=== PATIENT | male | born 1960 | race Caucasian/White ===

== ENCOUNTER 2019-07-07 17:39 | Observation (INO) | payer BC ==
[~2019-07-07] VITALS: Ht 182.9 cm; Wt 79.5 kg
--- NOTE | ~2019-07-07 | EC ---
PATIENT:GUILLE KARIMI DATE OF SERVICE: 07/07/19 SEX: M MEDICAL RECORD: [id number] DATE OF : 62 LOCATION:D.M2 D.212 AGE OF PATIENT: 58 ADMISSION DATE: 07/07/19 REFERRING PHYSICIAN: INTERPRETING PHYSICIAN: SANIA GUERRERO MD ECHOCARDIOGRAM REPORT ECHO CHARGES 4 ECHO COMPLETE Date: 07/08/19 CLINICAL DIAGNOSIS: MITRAL REGURG ECHOCARDIOGRAPHIC MEASUREMENTS (adult normal given) AC root (d.<3.7cm) 3.2 cm LV Septum d (<1.2 cm> 1.4 cm Valve Excursion 1.6 cm LV Septum (systole) 1.5 cm Left Atria (s.<4.0cm> 3.3 cm LVPW d(<1.2cm) 1.5 cm RV (d.<2.3cm) 4.8 cm LVPW (sytole) 1.5 cm LV diastole(<5.6CM) 6.0 cm MV E-F(>70mm/sec) cm LV systole 4.7 cm LVOT Diameter 1.9 cm MV exc.(>10mm) 1.8 cm Est.ejection fraction (50-75%) % DOPPLER: LVIT cm/sec A 84.0 cm/sec E 69.0 cm/sec LA cm/sec RVSP 26 mmHg LVOT 140 cm/sec AOP1/2T m/s Asc. Ao 160 cm/sec RVOT 104 cm/sec RA cm/sec PA 124 cm/sec AV Gradient Peak 10.28mmHg AV Mean 5.54 mmHg AV Area 2.4 cm MV Gradient Peak 3.17 mmHg MV Mean 1.47 mmHg MV Area cm COMMENTS: Manager Park: 2 MARS [place]ERO Business Education Professor: 4 Dr. Guerrero TAPE# PACS Pericardial Effusion N DATE OF SERVICE: FINDINGS: Left ventricle: The left ventricle has mild concentric left ventricular hypertrophy, normal size, normal function, ejection fraction 55%. There is no evidence of regional wall motion abnormalities. Left atrium is normal size; shape, structure, and function. The aortic valve is normal size, shape, structure, and function. ECHOCARDIOGRAM REPORT [id number] GUILLE KARIMI The mitral valve is normal. The tricuspid valve is normal. Pericardium has no effusion. The right ventricle is mildly dilated. The right atrium is mildly dilated. IMPRESSION: The patient has normal LV systolic function. Mildly dilated right ventricle and right ventricular structures with normal right-sided pressures. The patient does have calcification on the anterior mitral valve leaflet, it is echo dense, in the proper situation it could be considered a vegetation. There is no associated mitral regurgitation. However, clinical followup was suggested. TRANSINT:[id number] Voice Confirmation ID: [id number] DOCUMENT ID: [id number] SANIA GUERRERO MD CC: [id number] DICTATION DATE: 07/09/19 1147 OFFICE COMMUNICATION PROFESSOR: 07/09/19 1312 DIS IN 07/08/19 [facility] [address] [place] [address]
--- NOTE | ~2019-07-07 | HEMODYNAMI ---
PATIENT:GUILLE KARIMI MEDICAL RECORD: [id number] : 62 [id number] ADMISSION DATE: 07/07/19 Generatedon:07/08/201912:01 Patient name: GUILLE KARIMI Patient #: [id number] SSN: [id number] : 1960 Date of study: 07/08/2019 Page: Of Hemodynamic Procedure Report Patient Data Patient Demographics Procedure consent was obtained First Name: GUILLE Gender: Male Last Name: TREV : 1960 Patient #: [id number] Age: 58 year(s) Race: SSN: [id number] Additional ID: [id number] Contact details Address: [address] [address] State: [place] City: [place] Zip code: [address] Past Medical History Allergies: No known allergies Admission Admission Data Admission Date: 07/07/2019 Admission Time: 19:37 Arrival Date: 07/08/2019 Arrival Time: 0:00 Admit Source: Other Insurance Payor: Private Room #: D.2121 health insurance [facility] #: [id number] Height (in.): 72 BSA: 2.01 (m2) Height (cm.): 182.88 BMI: 23.78 (kg/m2) Weight (lbs.): 175.36 Weight (kg.): 79.54 Lab Results Lab Result Date: 07/08/2019 Lab Result Time: 0:00 Biochemistry Name Units Result Min Max BUN mg/dl 14 --(--*-)-- 7 18 CK-MB ng/ml 0.7 --(*---)-- 0 3.6 Creatinine mg/dl 0.8 --(-*--)-- 0.6 1.3 eGFR ml/min 90 --(*---)-- 90 120 NONAFRICAN Troponin l ng/ml 0.017 --(-*--)-- 0 0.06 CBC Name Units Result Min Max Hematocrit % 46.4 --(-*--)-- 42 54 Hemoglobin g/dl 14.8 --(-*--)-- 13.5 17.5 Procedure Procedure Types Cath Procedure Diagnostic Procedure [facility] w/Coronaries Procedure Description Procedure Date Procedure Date: 07/08/2019 Procedure Start Time: 11:50 Procedure End Time: 12:00 Procedure Staff Name Function Marie Lyn MD Performing Physician Emma Cartwright RN Nurse Dina Perales RT Monitor Gary Barnes RT Scrub Procedure Data Cath Procedure Fluoroscopy Diagnostic fluoroscopy Total fluoroscopy Time: 2.4 time: 2.4 min min Diagnostic fluoroscopy Total fluoroscopy dose: 238 dose: 238 mGy mGy Contrast Material Contrast Material Type Amount (ml) Isovue 370 30 Entry Location Entry Primary Successful Side Size Upsize Upsize Entry Closure Mcgowan ccessful Closure Location (Fr) 1 (Fr) 2 (Fr) Remarks Device Remarks Radial Right 6 Fr Mechanical artery Short Compression Estimated blood loss: 5 ml Diagnostic catheters Device Type Used For End Catheter Placement DIAGNOSTIC [place] 110cm 5 Procedure Fr catheter ([id number]) Procedure Complications No complications Procedure Medications Medication Administration Route Dosage Oxygen etCO2 Nasal cannula 2 l/min Lidocaine 2% added to field 20 Heparin Flush Bag added to field 2 bags (1000units/500ml NS) 0.9% NaCl I.V. 100 ml/hr Radial Cocktail I.A. 1 syringe (Verapamil 2mg/Nitro 400mcg/Heparin 1500units) Versed I.V. 1 mg Fentanyl I.V. 25 mcg Hemodynamics Rest BSA: 2.01 (m2) HGB: 14.8 (g/dl) O2 Consumption: Estimated: 242.75 (ml/min) O2 Co nsumption indexed: Estimated:120.77 (ml/min/m) Heart Rate: 77 (bpm) Pressure Samples Time Site Value (mmHg) Purpose Heart Use Rate(bpm) 11:50 LV 123/-11,5 Snapshot 90 11:57 AO -8/-10(-10) EDP 80 Gradients Valve Time Site Site Mean SEP/DFP Peak To Heart Use 1 2 (mmHg) (sec/min) Peak Rate (mmHg) (bpm) Aortic 11:51 LV AO 87 Snapshots Pre Cath Intra NCS Post Cath Vital Signs Time Heart Resp SPO2 etCO2 NIBP (mmHg) Rhythm Pain Sedation Rate (ipm) (%) (mmHg) Status Level (bpm) 11:38:29 80 18 97 30.7 145/97(114) NSR 0 (11) 10(A) , No pain 11:42:45 76 17 95 28.5 130/84(114) NSR 0 (11) 10(A) , No pain 11:46:59 84 16 96 29.2 135/84(102) NSR 0 (11) 10(A) , No pain 11:51:11 94 17 94 28.5 124/83(102) NSR 0 (11) 10(A) , No pain 11:55:22 80 15 96 31.5 137/82(133) NSR 0 (11) 10(A) , No pain 11:59:43 78 7 96 33 120/72(93) NSR 0 (11) 10(A) , No pain Medications Time Medication Route Dose Verified Delivered Reason Notes Effectiveness by by 11:37:34 Oxygen etCO2 2 l/min Norred Buffie used for Nasal Riki Cartwright RN procedure cannula 11:37:41 Lidocaine 2% added 20ml Norred Norred for local to vial Riki Lyn MD anesthetic field 11:37:46 Heparin Flush added 2 bags Norred Norred used for Bag to Riki Lyn MD procedure (1000units/500ml field NS) 11:38:15 0.9% NaCl I.V. 100 Norred Buffie Per ml/hr Riki Cartwright RN physician 11:43:22 Versed I.V. 1 mg Norred Buffie for sedation Riki Cartwright RN 11:43:28 Fentanyl I.V. 25 mcg Norred Buffie for sedation Riki Cartwright RN 11:46:02 Radial Cocktail I.A. 1 Norred Norred for (Verapamil syringe Riki Lyn MD vasodilation 2mg/Nitro 400mcg/Heparin 1500units) Procedure Log Time Note 11:01:38 Informed consent obtained and on chart 11:03:46 Lab Result : BUN 14 mg/dl 11:03:46 Lab Result : eGFR NONAFRICAN 90 ml/min 11:03:46 Lab Result : Hemoglobin 14.8 g/dl 11:03:46 Lab Result : Troponin l 0.017 ng/ml 11:03:46 Lab Result : Creatinine 0.8 mg/dl 11:03:46 Lab Result : CK-MB 0.7 ng/ml 11:03:46 Lab Result : Hematocrit 46.4 % 11:03:50 Arrival Date: 07/08/2019 12:00:00 AM 11:03:51 Admit Source: Other 11:04:00 Insurance Payor : Private health insurance 11:04:17 Patient Height : 72 inches 11:04:23 Patient Weight : 175.36 lbs 11:04:35 Patient allergic to No known allergies 11:04:40 Diagnostic Cath Status : Urgent 11:07:34 Procedure Status Urgent Heart Cath (IP). 11:07:37 Time tracking: Call back (After hours or weekends) 11:08:19 H&P Date Dictated: 07/07/2019 Within 30 days and on chart.. 11:08:20 Pre-procedure instructions explained to patient. 11:08:21 Pre-op teaching completed and patient verbalized understanding. 11:08:22 Family unavailable. 11:08:24 Patient NPO since Midnight. 11:08:31 Plan of Care:Hemodynamics will remain stable., Cardiac rhythm will remain stable., Comfort level will be maintained., Respiratory function will remain adequate., Patient/ family verbilizes understanding of procedure., Procedure tolerated without complication., Recovers from procedure without complications.. 11:08:37 Lab results completed and on chart. 11:08:40 Stress Test: no; N/A ? 11:15:10 Called and spoke with daughter of pt, Lupe German and updated. Dr Salazar will call post procedure and give update per pt request. 11:19:38 Risk of Mortality: 0.1 11:19:40 Risk of blood transfusion: 0.3 11:19:43 Risk of CLARITZA: 0.1 11:19:44 Alarms reviewed by R. N. 11:19:45 Sharps counted by scrub and verified by R.N. 11:19:57 Emma Cartwright RN sent for patient. Start room use. 11:23:40 Patient received from Med II to CCL 1 Alert and oriented. Tansferred to table in Supine position. 11:23:53 Warm blankets applied, and zahira hugger turned on for patient comfort. 11:23:54 Correct patient and procedure confirmed by team. 11:23:54 ECG and BP/O2 sat monitors applied to patient. 11:24:01 Is the patient allergic to Iodine/contrast media? No. 11:24:03 Was the patient premedicated? N/A 11:24:05 Is patient on blood thinner?Yes 11:24:07 Patient diabetic? No. 11:24:08 ----Pre-sedation anethsthesia assessment.---- 11:37:24 Vital chart was started 11:37:34 Oxygen 2 l/min etCO2 Nasal cannula was administered by Emma Cartwright RN; used for procedure; Verbal order read back and verified. 11:37:41 Lidocaine 2% 20ml vial added to field was administered by Marie Lyn MD; for local anesthetic; Verbal order read back and verified. 11:37:46 Heparin Flush Bag (1000units/500ml NS) 2 bags added to field was administered by Marie Lyn MD; used for procedure; Verbal order read back and verified. 11:38:15 0.9% NaCl 100 ml/hr I.V. was administered by Emma Cartwright RN; Per physician; Verbal order read back and verified. 11:40:55 ACC The patient was administered the following blood thiners within the last 24 hours: ACCPlavix 11:40:59 Previous problem with sedation/anesthesia? No ? 11:40:59 Snore? Yes 11:41:01 Sleep apnea? No 11:41:02 Deviated septum? No 11:41:04 Opens mouth fully? Yes 11:41:05 Sticks out tongue? Yes 11:41:08 Airway obstruction? No ? 11:41:12 Dentures? No ? 11:41:15 Pre procedure: right dorsailis pedis pulse 2+ Normal; easily identifiable; not easily obliterated 11:41:17 Modified Suleman's test Ulnar < 7 seconds 11:41:19 Patient pain scale 0/10 ?. 11:41:25 IV patent on arrival in left antecubital with 0.9% NaCl at [facility]. 11:41:29 Right Radial & Right Groin area was prepped with chlora-prep and draped in sterile fashion 11:42:13 --------ALL STOP TIME OUT------ 11:42:13 Final Timeout: patient, procedure, and site verified with staff and physician. All members of the team are in agreement. 11:42:15 Right Radial & Right Groin site verified by team. 11:42:19 Fire Safety Assessment: A--An alcohol-based skin anteseptic being used preoperatively., C--Open oxygen or nitrous oxide is being used., D--An ESU, laser, or fiber-optic light is being used. 11:42:28 Physical assessment completed. ASA score P 2 - A patient with mild systemic disease as per Marie Lyn MD. 11:42:31 1) 90+ Normal kidney functon but urine findings or structural abnormalities or genetic trait point to kidney disease. 11:42:34 Maximum allowable contrast dose (3.7 X eGFR X 0.75)250 ml. 11:42:39 Sedation plan: IV Moderate Sedation Medication:Versed, Fentanyl 11:42:47 Use device set Radial Dx or PCI 11:42:50 ACIST Syringe (57460) opened to sterile field. 11:42:51 Medline Cath Pack ([id number]) opened to sterile field. 11:42:52 Bag Decanter (2002S) opened to sterile field. 11:42:52 ACIST Hand Control (01679) opened to sterile field. 11:42:53 ACIST Manifold (70531) opened to sterile field. 11:42:54 MBrace Wrist Support (039010610) opened to sterile field. 11:42:56 EMERALD Guide Wire (787-108) opened to sterile field. 11:42:57 SHEATH 6FR RAIN (3903859) opened to sterile field. 11:43:16 Full Disclosure recording started 11:43:17 Baseline sample Acquired. 11:43:20 Rhythm: sinus rhythm 11:43:22 Versed 1 mg I.V. was administered by Emma Cartwright RN; for sedation; Verbal order read back and verified. 11:43:28 Fentanyl 25 mcg I.V. was administered by Emma Cartwright RN; for sedation; Verbal order read back and verified. 11:43:32 Local anesthetic to right radial artery with Lidocaine 2% by Marie Lyn MD.INITIAL ACCESS ONLY 11:45:22 A 6 Fr Short sheath was inserted into the Right Radial artery 11:45:59 Zero performed for pressure channel P1 11:46:00 Procedure started. 11:46:02 Radial Cocktail (Verapamil 2mg/Nitro 400mcg/Heparin 1500units) 1 syringe I.A. was administered by Marie Lyn MD; for vasodilation; Verbal order read back and verified. 11:46:10 Zero performed for pressure channel P1 11:47:25 A DIAGNOSTIC [place] 110cm 5 Fr catheter (340815) was advanced over the wire and used for Procedure. 11:50:46 LV gram done using TOM 11:51:17 Injector settings: Ml/sec: 5, Volume: 15, 11:51:18 LV hemodynamics recorded. 11:51:30 EF : 70 % 11:51:58 RCA angiography performed. 11:52:03 Injector settings: Ml/sec: 3, Volume: 6, 11:53:48 LCA angiography performed. 11:53:50 Injector settings: Ml/sec: 3, Volume: 6, 11:55:32 Catheter removed. 11:55:35 ZEPHYR REGULAR TR BAND (946054) opened to sterile field. 11:55:45 Sheath removed intact; hemostasis achieved with Mechanical Compression to the Right Radial artery. 11:55:48 Procedure ended.(Physican Out) 11:56:13 Fluoroscopy time 02.40 minutes. 11:56:17 Fluoroscopy dose: 238 mGy 11:56:17 Flurop Dose total: 238 11:56:22 Dose Area Product 80152 mGy/cm. 11:56:25 Contrast amount:Isovue 370 30ml. 11:56:29 Maximum allowable dose exceeded? No. 11:56:30 Sharps counted by scrub and verified by R.N. 11:56:32 [place] band inflated with 14cc of air. 11:56:39 Post procedure: right dorsailis pedis pulse 2+ Normal; easily identifiable; not easily obliterated. 11:56:42 Post-procedure physical assessment completed. ASA score P 2 - A patient with mild systemic disease as per Marie Lyn MD. 11:56:44 Post procedure rhythm: unchanged. 11:56:47 Estimated blood loss: 5 ml 11:56:48 Post procedure instruction explained to patient.Patient verbalizes understanding. 11:56:49 Patient needs reinforcement of post procedure teaching. 11:59:32 Procedure and supply charges have been captured, reviewed, submitted and are correct. 11:59:38 Procedure Complication : No complications 11:59:46 Vital chart was stopped 11:59:49 [facility] Findings: mild to moderate CAD (<70%) 12:00:14 Operative report dictated upon procedure completion. 12:00:15 See physician's report for complete and final results. 12:00:17 Report given to Med II. 12:00:21 Patient transfered to Med II with Bed. 12:00:23 Procedure ended. 12:00:23 Full Disclosure recording stopped 12:00:28 End room use (Document Last) 12:00:52 End room use (Document Last) 12:01:07 End room use (Document Last) Device Usage Item Name Manufacture Quantity Catalog Hospital Part Current Minima l Lot# / Number Charge Number Stock Stock Serial# Code ACIST Acist 1 52560 [id number] [id number] [id number] 20 Syringe Medical (13565) Systems Inc Medline Medline 1 [id number] 698570 06503 971929 5 Cath Pack ([id number]) Bag Microtek 1 2001S 035214 61098 868919 5 Decanter Medical Inc. () ACIST Hand Acist 1 45515 937263 164861 574385 5 Control Medical (36047) Systems Inc ACIST Acist 1 55366 335450 345711 952751 5 Manifold Medical (05438) Systems Inc MBrace Advanced 1 140-0250-00 560450 45197 163486 5 Wrist Vascular Support Dynamics ([id number]) EMERALD Cardinal 1 502-455 330776 407192 430954 5 Guide Wire Health (502455) SHEATH 6FR Cardinal 1 9984929 727981 3521986 396531 5 [facility] (2644089) DIAGNOSTIC Terumo 1 40-5013 393010 775380 984588 5 [place] 110cm 5 Fr catheter (918470) ZEPHYR Cardinal 1 783613 347085 0081112 465906 5 REGULAR TR Health BAND (269494) Signature Audit [place] Stage Time Signature Unsigned Intra-Procedure 07/08/2019 Dina Perales 12:00:52 PM RT(R) Intra-Procedure 07/08/2019 Emma Cartwright RN 12:01:07 PM Intra-Procedure 07/08/2019 Marie Lyn MD 12:01:46 PM [id number] [place] [address]
[2019-07-07] MEDS ORDERED: COZAAR100 MG PO (17:55)
[2019-07-07] MEDS ORDERED: NEURONTIN600 MG PO (17:56)
[2019-07-07] MEDS ORDERED: LIPITOR20 MG PO (17:56)
[2019-07-07] MEDS ORDERED: METOPROLOL TART50 MG PO (17:56)
[2019-07-07 18:49] LABS: BASOPHILS 0.6 % (0-2); EOSINOPHILS 1.7 % (0-7); HEMATOCRIT 47.6 % (42.0-54.0); HEMOGLOBIN 15.2 g/dL (13.5-17.5); IMMATURE GRANULOCYTES 0.9 % (0-5); LYMPHOCYTES 26.4 % (15-50); MCH 31.7 pg (26.0-34.0); MCHC 31.9 g/dL (31.0-37.0); MCV 99.2 fL (80.0-100.0); MEAN PLATELET VOLUME 11.5 fL (7.4-10.4); MONOCYTES 9.9 % (2-11); NEUTROPHILS 60.5 % (40-80); PLATELET COUNT 305 10x3/uL (130-400); RDW 14.4 % (11.5-14.5); WBC 9.3 10x3/uL (4.8-10.8)
[2019-07-07 18:58] LABS: APTT 26.4 SECONDS (22.8-39.4); INR 0.98 (0.85-1.17); PROTIME 12.9 SECONDS (11.6-15.0)
[2019-07-07 19:03] LABS: CALC OSMOLALITY 281 mosm/kg (275-300); CALCIUM 8.6 mg/dL (8.5-10.1); CARBON DIOXIDE 23.9 mmol/L (21.0-32.0); CHLORIDE - SERUM 106 mmol/L (98-107); CREATININE - SERUM 0.8 mg/dL (0.6-1.3); GLUCOSE 80 mg/dL (74-106); POTASSIUM - SERUM 3.7 mmol/L (3.5-5.1); SODIUM 142 mmol/L (136-145); UREA NITROGEN 12 mg/dL (7-18); eGFR NON AFRICAN AMERICAN > 90 mL/min (90-120)
[2019-07-07 19:16] LABS: ALBUMIN 3.4 g/dL (3.4-5.0); ALKALINE PHOSPHATASE 68 U/L (30-120); ALT (SGPT) 42 U/L (10-68); BILIRUBIN - TOTAL 0.82 mg/dL (0.2-1.3); CKMB 0.8 U/L (0.0-3.6); CREATINE KINASE 53 UL (21-232); MAGNESIUM - SERUM 2.2 mg/dL (1.8-2.4); PROTEIN - SERUM 6.2 g/dL (6.4-8.2)
[2019-07-07 19:17] LABS: TROPONIN-I < 0.017 ng/mL (0.000-0.060)
[2019-07-07 19:29] VITALS: BP 140/92
--- NOTE | 2019-07-07 19:29 | NUR ---
PT RATES "CHEST TIGHTNESS" 05/15. PT GIVEN ONE SL NITRO.
[2019-07-07 19:32] VITALS: BP 131/89
--- NOTE | 2019-07-07 19:35 | NUR ---
THE 2ND UNIT OF PRBC STARTED, PATIENT STABLE, CALL LIGHT WITHIN REACH.
[2019-07-07 20:00] VITALS: BP 120/81
[2019-07-07 21:38] LABS: CKMB 0.6 U/L (0.0-3.6); CREATINE KINASE 47 UL (21-232)
[2019-07-07 21:48] LABS: TROPONIN-I < 0.017 ng/mL (0.000-0.060)
[2019-07-07 22:39] VITALS: BP 124/71; BMI 23.8
[2019-07-07] MEDS ORDERED: AMBIEN10 MG PO (22:49)
--- NOTE | 2019-07-07 23:11 | NUR ---
PT ARRIVED VIA W/C FROM ER WITH DX CP AT 2033 HRS. NO DISTRESS NOTED. PT ORIENTEDT O RM AND TELE PLACED. SR PER CM HR 70. ALERT AND ORIENTED TO PERSON, PLACE AND TIME. CORONEL. IV TO L HAND SL. ADMISSION ASSESSMENT, HISTORY AND HOME MED LIST COMPLETED BY 2250 HRS. VSS. TYLENOL 650MG PO GIVEN FOR C/O PATRICK. SR UP X2, CALL LIGHT WITHIN REACH.
[2019-07-08 00:30] VITALS: BP 127/80
--- NOTE | 2019-07-08 01:45 | NUR ---
PT RESTING WITH EYES CLOSED. RESP EVEN AND REGULAR. SR UP X1, CALL LIGHT WITHIN REACH.
[2019-07-08 03:53] LABS: BASOPHILS 0.6 % (0-2); EOSINOPHILS 3.8 % (0-7); HEMATOCRIT 46.4 % (42.0-54.0); HEMOGLOBIN 14.8 g/dL (13.5-17.5); IMMATURE GRANULOCYTES 1.3 % (0-5); LYMPHOCYTES 35.7 % (15-50); MCH 31.8 pg (26.0-34.0); MCHC 31.9 g/dL (31.0-37.0); MCV 99.6 fL (80.0-100.0); MEAN PLATELET VOLUME 11.5 fL (7.4-10.4); MONOCYTES 12.9 % (2-11); NEUTROPHILS 45.7 % (40-80); PLATELET COUNT 290 10x3/uL (130-400); RBC 4.66 10x6/uL (4.20-6.10); RDW 14.4 % (11.5-14.5)
[2019-07-08 03:57] LABS: WBC 6.9 10x3/uL (4.8-10.8)
--- NOTE | 2019-07-08 04:12 | NUR ---
EXPLAINED TO PT NPO UNTIL SEEN BY CARDIOLOGY. PT STATED UNDERSTANDING.
[2019-07-08 04:22] LABS: CALC OSMOLALITY 280 mosm/kg (275-300); CALCIUM 8.2 mg/dL (8.5-10.1); CHLORIDE - SERUM 107 mmol/L (98-107); CKMB 1.3 U/L (0.0-3.6); CREATINE KINASE 57 UL (21-232); CREATININE - SERUM 0.8 mg/dL (0.6-1.3); GLUCOSE 82 mg/dL (74-106); MAGNESIUM - SERUM 2.2 mg/dL (1.8-2.4); PHOSPHOROUS 3.5 mg/dL (2.5-4.9); POTASSIUM - SERUM 3.8 mmol/L (3.5-5.1); SODIUM 141 mmol/L (136-145); THYROID STIMULATING HORMONE 1.55 uIU/mL (0.36-3.74); TROPONIN-I < 0.017 ng/mL (0.000-0.060); UREA NITROGEN 14 mg/dL (7-18); eGFR NON AFRICAN AMERICAN > 90 mL/min (90-120)
[2019-07-08 04:45] VITALS: BP 135/74
--- NOTE | 2019-07-08 05:25 | NUR ---
PT DECLINING CAROTID U/S AT [facility] TIME. STATES HE HAD 1 DONE WITHIN THE LAST 6 MONTHS IN [place] IN A CLINIC. STATES DR FELDER ORDERED IT AND IT WAS CLEAR.
--- NOTE | 2019-07-08 05:41 | NUR ---
PT STATES CAROTID U/S DONE AT [facility] IN [place].
--- NOTE | 2019-07-08 06:20 | NUR ---
VSS THROUGHOUT NIGHT. SR PER CM. PT STATED TYLENOL ALLEVIATED PATRICK. NEEDS MET; WILL CONTINUE TO MONITOR.
--- NOTE | 2019-07-08 07:00 | NUR ---
RECEIVED REPORT. ASSUMED CARE OF PATIENT. CALL LIGHT WITHIN REACH. RESTING IN BED WITH EYES OPEN. SB ON TELEMETRY, RATE 58. PATIENT REFUSING CAROTID DOPPLER HE JUST HAS THIS DONE IN [place] AT [facility] 2 WEEKS AGO. WILL RETRIEVE MEDICAL RECORDS.
--- NOTE | 2019-07-08 09:55 | NUR ---
FAX NUMBER CONTINUES TO FAIL, ELODIA BERKOWITZ GROVE SUPERINTENDENT SPEAKING WITH IN [place] TO CONFIRM FAX NUMBER THAT WAS PROVIDED BY THE ELEVATOR INSTALLER.
--- NOTE | 2019-07-08 09:57 | NUR ---
PATIENT OOB TO CHAIR AT BEDSIDE. CALL LIGHT WITHIN REACH. PATIENT SEEN BY AND WILL HAVE HEART CATH IN AM.
--- NOTE | 2019-07-08 10:09 | NUR ---
AT BEDSIDE FOR CONSULTATION AT THIS TIME.
[2019-07-08 10:10] VITALS: BP 136/87
[2019-07-08 10:16] LABS: CKMB 0.7 U/L (0.0-3.6); CREATINE KINASE 41 UL (21-232)
[2019-07-08 10:22] LABS: TROPONIN-I < 0.017 ng/mL (0.000-0.060)
[2019-07-08 11:03] VITALS: Ht 182.9 cm; Wt 79.5 kg
--- NOTE | 2019-07-08 11:06 | NUR ---
PREOPT FOR AMMUNITION STOREKEEPER
--- NOTE | 2019-07-08 11:24 | NUR ---
PATIENT LEFT UNIT VIA BED FOR CARDIAC ANGIOGRAM AT THIS TIME. NO DISTRESS UPON LEAVING UNIT.
[2019-07-08 12:00] VITALS: BP 141/82
--- NOTE | 2019-07-08 12:11 | NUR ---
RECEIVED REPORT FROM OBSERVER GRAVITY PROSPECTING. PATIENT HAD CLEAN HEART CATH. PATIENT BACK TO UNIT SOON.
--- NOTE | 2019-07-08 12:15 | NUR ---
PATIENT ARRIVED TO UNIT VIA BED, ALERT/ORIENTED. PATIETN REQUESTING LUNCH AND LOTS OF QUESTIONS ABOUT WHEN HE CAN GO HOME. PATIENT WITH TR BAND TO RIGHT RADIAL. NO BLEEDING FROM SITE. TR BAND IS PATENT. PERIPHERAL PULSES PATENT. FLUIDS INFUSING ORDERED. LUNCH ORDERED FOR PATIENT. NO DISTRESS.
--- NOTE | 2019-07-08 12:23 | NUR ---
CORN SHREDDER AT BEDSIDE FOR ECHOCARDIOGRAM AT THIS TIME.
--- NOTE | 2019-07-08 12:29 | NUR ---
PAGED PER PRIMARY.
--- NOTE | 2019-07-08 12:32 | NUR ---
VERIFIED PATIENT TO HAVE REGURGITATION, NOT VEGITATION PER .
--- NOTE | 2019-07-08 13:36 | NUR ---
5ML AIR REMOVED FROM RIGH RADIAL TR BAND. NO BLEEDING NOTED. PATIENT TOLERATED AIR REMOVAL WELL. 5 ML REMAINS. BP 114/61. NO DISTRESS. CALL LIGHT WITHIN REACH.
--- NOTE | 2019-07-08 14:18 | NUR ---
REMAINING 5ML AIR REMOVED FROM TR BAND. TR BAND REMOVED. NO BLEEDING FROM SITE. 2X2 GAUZE APPLIED AND SECURED WITH CLEAR TEGADERM DRESSING. PATIENT RESTING IN BED WITH EYES OPEN. BP 116/72. CALL LIGHT WITHIN REACH. NO DISTRESS.
--- NOTE | 2019-07-08 15:50 | NUR ---
SPOKE WITH LINN AND RECEIVED ORDERS TO DISCHARGE PATEINT TO HOME. NO NEW ORDERS FOR MEDICATIONS RECEIVED. CONTINUE CURRENT HOME REGIMEN AND FOLLOW UP WITH HIS PCP.
--- NOTE | 2019-07-08 16:30 | NUR ---
20 GAUGE IV REMOVED FROM LEFT WRIST. CATHETER TIP INTACT. NO BLEEDING FROM SITE. 2X2 GAUZE APPLIED AND SECURED WITH BANDAID. DISCHARGE INSTRUCTIONS PROVIDED TO PATIENT. PATIENT VERBALIZED UNDERSTANDING OF ALL INSTRUCTIONS PROVIDED.
--- NOTE | 2019-07-08 16:38 | NUR ---
PATIENT LEFT UNIT VIA WHEELCHAIR WITH ALL PERSONAL BELONGINGS. PATIENT IN NO DISTRESS UPON LEAVING UNIT. PATIENT WITH NO COMPLAINTS OF CHEST PAIN UPON LEAVING UNIT. PATIENT DISCHARGED TO HOME.
== END 2019-07-08 16:40 | disposition home or self-care (01) ==
LOC: D.ER 17:39 → D.M2 19:37 → OBSVTIME 19:37 → D.M2 19:37
PROVIDERS: Emergency Medicine; Family Medicine; ADMIT Family Medicine; ATTEND Family Medicine
DX: R07.9 Chest pain, unspecified (principal); I10 Essential (primary) hypertension; E78.5 Hyperlipidemia, unspecified; Q24.5 Malformation of coronary vessels; I34.0 Nonrheumatic mitral (valve) insufficiency